=== PATIENT | female | born 2000 ===

== ENCOUNTER 2024-10-17 12:25 | Emergency (ER) | payer OTHER ==
[~2024-10-17] VITALS: Ht 160 cm; Wt 56.7 kg
[2024-10-17] MEDS ORDERED: METHYLPREDNISOLONE SOD SUCC 125 MG VIAL IM ONE (13:15)
[2024-10-17] MEDS ORDERED: CEFTRIAXONE SODIUM 1,000 MG VIAL IM ONE (13:15)
[2024-10-17] MEDS ORDERED: KETOROLAC TROMETHAMINE 30 MG VIAL IM ONE (13:15)
== END 2024-10-17 12:36 | disposition left against medical advice (07) ==
LOC: ER 12:25
DX: J02.9 Acute pharyngitis, unspecified (principal)

== ENCOUNTER → 2025-02-21 06:38 | Outpatient (CLI) | payer OTHER ==
[2025-02-21 08:04] LABS: BASO % 0.4 % (0.1-1.2); EOS # 0.29 (0.04-0.54); EOS % 3.2 % (0.7-7.0); LYMPH # 2.49 (1.18-3.74); LYMPH % 27.7 % (19.3-53.1); MEAN PLATELET VOLUME 9.80 fl (9.4-12.4); MONO # 0.75 (0.24-0.82); MONO % 8.3 % (4.7-12.5); NEUT # 5.39 (1.56-6.13); NEUT % 60.1 % (34.0-71.1); RED CELL DISTRIBUTION WIDTH 13.2 % (11.6-14.4)
[2025-02-21 08:21] LABS: URINE APPEARANCE Clear; URINE BILIRRUBIN Negative (NEGATIVE); URINE BLOOD Trace; URINE COLOR Yellow; URINE GLUCOSE Negative (NEGATIVE); URINE KETONE Negative (NEGATIVE); URINE LEUKOCYTE Small; URINE NITRATE Negative; URINE PROTEIN Negative (NEGATIVE); URINE UROBILINOGEN 0.2 E.U./dl
[2025-02-21 08:25] LABS: URINE BACTERIA 4058.2 uL (0.0-1933); URINE EPITHELIAL CELLS 40.6 uL (0.0-38.8); URINE RBC 33.5 uL (0.0-20.8); URINE WBC 224.4 uL (0.0-23.2)
[2025-02-21 09:00] LABS: URINE CAST 0.14 uL (0.0-1.40)
[2025-02-21 09:10] LABS: ALT/SGPT 17.0 U/L (12-78); AST/SGOT 15.0 U/L (15-37); BILIRUBIN TOTAL 0.25 mg/dL (0.3-1.2); BUN CREA RATIO 19.0 (7.0-25.0); CHOL HDL RATIO 2.6 (0-5.0); CREATININE SERUM 0.79 mg/dL (0.55-1.02); GFR 89.41; GLOBULINA 3.3 G/DL (2.4-3.5); GLUCOSE FASTING 83.0 mg/dL (65-100); HDL 61.0 mg/dl (40-60); LDL 89.0 mg/dl (0-130); OSMOLALITY SERUM 283.0 MOSM/KG (275-295); TSH 1.66 uIU/mL (0.358-3.74); VLDL 11.0 (0-39)
== END | disposition home or self-care (01) ==
LOC: LAB 06:38
PROVIDERS: ATTEND Obstetrics & Gynecology
DX: N94.5 Secondary dysmenorrhea (principal); N92.0 Excessive and frequent menstruation with regular cycle; Z01.419 Encounter for gynecological examination (general) (routine) without abnormal findings; Z12.11 Encounter for screening for malignant neoplasm of colon; Z13.1 Encounter for screening for diabetes mellitus; R53.81 Other malaise; E78.010 Homozygous familial hypercholesterolemia [HoFH]; E55.9 Vitamin D deficiency, unspecified